=== PATIENT | male | born 1940 | race Caucasian/White ===

== ENCOUNTER → 2017-03-30 22:50 | Emergency (ER) | payer MEDICARE ==
[~2017-03-30 22:50] MED LIST: DOXYcycline CAP(*) 100 MG PO ONE
[2017-03-30 22:56] VITALS: BP 174/74
--- NOTE | 2017-03-30 23:13 | ED ---
Bite Injury/Animal - HPI Summary HPI Summary: 76M presents with tick on left thigh today. He tried to remove it with tweezers and tick twister. He does not know how long it has been there. tick removed 2 hours ago. no allergy to doxcycline. no history of lyme. no fever or rash. 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 TONSILECTOMY, 1961 Hx Anesthesia Reactions: No Infectious Disease History: No Infectious Disease History: Denies: Traveled Outside the [place] in Last 30 Days - Family History Known Family History: Positive: Cardiac Disease - Social History Alcohol Use: None Substance Use Type: Reports: None Amount Used/How Often: PACK A DAY Have You Smoked in the Last Year: No Review of Systems Negative: Fever Negative: Chest Pain Negative: Shortness Of Breath Positive: Other - tick bite left thigh All Other Systems Reviewed And Are Negative: Yes Physical Exam Triage Information Reviewed: Yes Vital Signs On Initial Exam: Initial Vitals Temp Pulse Resp BP Pulse Ox 97.2 F 70 16 174/74 98 03/30/17 22:52 03/30/17 22:52 03/30/17 22:52 03/30/17 22:52 03/30/17 22:52 Vital Signs Reviewed: Yes Appearance: Positive: Well-Appearing Skin: Positive: Warm, Dry, Other - tick bite on left thigh with 1cm surrounding red irritation Head/Face: Positive: Normal Head/Face Inspection Eyes: Positive: Normal, Conjunctiva Clear Respiratory/Lung Sounds: Positive: Clear to Auscultation, Breath Sounds Present Cardiovascular: Positive: Normal, RRR Musculoskeletal: Positive: Normal Neurological: Positive: Normal Psychiatric: Positive: Normal Diagnostics - Vital Signs Vital Signs Temp Pulse Resp BP Pulse Ox 03/30/17 22:52 97.2 F 70 16 174/74 98 - Laboratory Lab Statement: Any lab studies that have been ordered have been reviewed, and results considered in the medical decision making process. Bite Injury Course/Dx - Course Course Of Treatment: 76M presents with tick on left thigh today. He tried to remove it with tweezers and tick twister. He does not know how long it has been there. tick removed 2 hours ago. no allergy to doxcycline. no history of lyme. no fever or rash. tick head remained in left thigh, removed part of it but can not get all of it. will treat with ppx dose of doxycyline. patient understands and agrees with plan. - Diagnoses Differential Diagnosis/HQI/PQRI: Positive: Other - tick, lyme Provider Diagnosis: Tick bite Discharge - Discharge Plan Condition: Good Disposition: HOME Patient Education Materials: Tick Bite (ED) Referrals: Jayna Pathak MD [Primary Care Provider] - Additional Instructions: You have been prophylactically treated for Lyme disease Return to ED if develop any rash or signs of infection
== END | disposition home or self-care (01) ==
LOC: ED 22:50
DX: S70.362A Insect bite (nonvenomous), left thigh, initial encounter (principal); W57.XXXA Bitten or stung by nonvenomous insect and other nonvenomous arthropods, initial encounter; Y93.9 Activity, unspecified; Y92.9 Unspecified place or not applicable
CPT/HCPCS: 99282; A9270-GY

== ENCOUNTER 2023-08-27 09:38 | Observation (INO) ==
[2023-08-27 10:17] LABS: ABS Eosinophils 0.2 10^3/uL (0.0-0.5); ABS Lymphocytes 0.6 10^3/uL (1.0-4.8); ABS Monocytes 0.4 10^3/uL (0.0-1.1); ABS Neutrophils 4.7 10^3/uL (1.5-7.6); Eosinophil % 3.3 %; Hematocrit 41.4 % (38-53); Hemoglobin 13.6 g/dL (13.2-16.3); Lymphocyte % 9.8 %; Mean Corpuscular Hgb Conc 32.8 g/dL (31-36); Mean Corpuscular Volume 91.4 fL (80-97); Mean Platelet Volume 8.8 fL (7.5-11.2); Nucleated Red Blood Cells % 0.1 %/100WBC (0.0-0.8); Platelet Count 146 10^3/uL (150-450); Red Blood Count 4.53 10^6/uL (4.06-5.63); Red Cell Distribution Width 15.9 % (12-17); White Blood Count 5.8 10^3/uL (3.6-10.2)
[2023-08-27 10:24] LABS: INR 1.24 (0.83-1.13)
[2023-08-27 10:35] LABS: High Sens Troponin Baseline 8 pg/mL (<20)
[2023-08-27] MEDS: Lactated Ringers 1000 ml BAG 1,000 ML IV ONE (10:41)
[2023-08-27 11:14] LABS: ALT 18 U/L (7-52); Albumin 3.6 g/dL (3.2-5.2); Albumin/Globulin Ratio 1.3 (1-3); Alkaline Phosphatase 107 U/L (35-149); Anion Gap 8 mmol/L (2-16); Blood Urea Nitrogen 20 mg/dL (6-24); CO2 Carbon Dioxide 22 mmol/L (22-32); Calcium 8.5 mg/dL (8.6-10.3); Chloride 109 mmol/L (101-111); Creatinine, Serum 1.41 mg/dL (0.67-1.17); Globulin 2.8 g/dL (2-4); Glucose 181 mg/dL (70-100); Sodium 139 mmol/L (135-145); Total Bilirubin 0.6 mg/dL (0.2-1.0); Total Protein 6.4 g/dL (6.4-8.9); eGFR CKD-EPI 49.8 (>60)
[2023-08-27 12:04] LABS: Urine Appearance Clear; Urine Bilirubin Negative (Negative); Urine Blood Negative (Negative); Urine Color Colorless; Urine Glucose Negative (Negative); Urine Ketones Negative (Negative); Urine Nitrite Negative (Negative); Urine Protein Negative (Negative); Urine Urobilinogen Negative (Negative); Urine pH 5.5 (5.0-8.0)
[2023-08-27 12:14] LABS: Urine Bacteria Absent /HPF (Absent); Urine Red Blood Cell 1+(3-5/hpf) /HPF (0-Trace); Urine White Blood Cell Trace(0-5/hpf) /HPF (0-Trace)
[2023-08-27 12:32] LABS: C Reactive Protein 1.05 mg/L (<8.01)
[2023-08-27] MEDS: Lactated Ringers 1000 ml BAG 1,000 ML IV SCH ×2 (15:00→15:11)
[2023-08-27] MEDS: cefTRIAXone 1 gm/50 mL D5W 1 GM/50 ML BAG IV ONE (18:34)
[2023-08-28 06:15] LABS: ABS Eosinophils 0.3 10^3/uL (0.0-0.5); ABS Monocytes 0.7 10^3/uL (0.0-1.1); ABS Neutrophils 4.3 10^3/uL (1.5-7.6); ABS Nucleated RBC 0.01 10^3/ul; Eosinophil % 4.8 %; Hematocrit 35.9 % (38-53); Lymphocyte % 15.1 %; Mean Corpuscular Hgb Conc 33.4 g/dL (31-36); Mean Corpuscular Volume 89.8 fL (80-97); Mean Platelet Volume 8.9 fL (7.5-11.2); Nucleated Red Blood Cells % 0.2 %/100WBC (0.0-0.8); Platelet Count 169 10^3/uL (150-450); Red Cell Distribution Width 15.9 % (12-17); White Blood Count 6.3 10^3/uL (3.6-10.2)
[2023-08-28 06:32] LABS: Albumin 3.1 g/dL (3.2-5.2); Albumin/Globulin Ratio 1.4 (1-3); Calcium 8.1 mg/dL (8.6-10.3); Creatinine, Serum 1.44 mg/dL (0.67-1.17); Globulin 2.2 g/dL (2-4); Potassium 3.9 mmol/L (3.5-5.0); Total Bilirubin 0.3 mg/dL (0.2-1.0); Total Protein 5.3 g/dL (6.4-8.9); eGFR CKD-EPI 48.5 (>60)
[2023-08-28 07:44] LABS: Magnesium 1.9 mg/dL (1.9-2.7)
[2023-08-28] MEDS: Aspirin EC 81 mg TAB.EC (enteric coated) PO SCH (08:35)
[2023-08-28] MEDS: Potassium Chlor 20 meq TAB.ER PO ONE (08:35)
[2023-08-28] MEDS ORDERED: Sulfur Hexaflouride MICROSPHR 25 MG VIAL ONE (10:55)
[2023-08-28] MEDS ORDERED: Lidocaine 1% MPF 5 ML VIAL ONE (14:33)
[2023-08-28 16:28] VITALS: BP 147/76
[2023-08-28] MEDS ORDERED: cefTRIAXone 1 gm/50 mL D5W 1 GM/50 ML BAG IV SCH (16:30)
== END 2023-08-28 17:44 | disposition home or self-care (01) ==
LOC: ED 09:38 → EDHOLD 09:38 → SUATTDRO 14:01 → MEDTELE 15:50
PROVIDERS: ADMIT Hospitalist; ATTEND Internal Medicine

== ENCOUNTER 2024-05-18 08:30 | Observation (INO) ==
[~2024-05-18 08:30] MED LIST changes: -DOXYcycline CAP(*) 100 MG PO ONE; +Dexamethasone IV 4 MG/ML VIAL 1 ml VIAL ONE; +Lidocaine 2% PF 5 ML VIAL ONE; +Metoclopramide 5 MG/ML VIAL (10 mg) IV PRN; +Midazolam 2 mg/2 ml VIAL 1 mg/ml 2 ml VIAL (2 mg) ONE; +NS 0.45% 1000 ml BAG 1,000 ML IV SCH; +Naloxone 0.4 mg VIAL 0.4 mg/ml 1 ml VIAL IV PRN; +Ondansetron 4 mg VIAL 2 MG/ML 2 ml VIAL IV PRN; +Ondansetron 4 mg VIAL 2 MG/ML 2 ml VIAL ONE; +Propofol 10 mg/ml 100 ML BTL 0 MG/0 ML BTL ONE; +ROPIVACAINE 5 MG/ML 30 ML BTL (0.5%) ONE; +fentaNYL 100 mcg/2 ml 50 MCG/ML VIAL IV PRN; +fentaNYL 100 mcg/2 ml 50 MCG/ML VIAL ONE
[2024-05-18] MEDS ORDERED: ceFAZolin 2 GM PREMIX 2 GM/50 ML BAG ONE (08:49)
[2024-05-18] MEDS ORDERED: Tranexamic Acid 1 GM/100ML BAG 2,000 MG/200 ML BAG IV ONE (08:49)
[2024-05-18] MEDS: Lactated Ringers 1000 ml BAG 1,000 ML IV SCH ×2 (09:19→15:51)
[2024-05-18] MEDS: Acetaminophen IV 1 GM/100ML 1,000 MG/100 ML BAG IV ONE (09:21)
[2024-05-18] MEDS: Buffered Lidocaine 1% SYRIN 1 ml INTRADERM ONE (09:22)
[2024-05-18] MEDS: Scopolamine 1 mg/72hr PATCH TRANSDERM ONE (09:23)
[2024-05-18 09:24] LABS: Rapid COVID-19 Molecular Undetected (Undetected)
[2024-05-18] MEDS ORDERED: ROPIVACAINE 5 MG/ML 30 ML BTL (0.5%) ONE (11:07)
[2024-05-18] MEDS ORDERED: Lidocaine 2% PF 5 ML VIAL ONE (11:19)
[2024-05-18] MEDS ORDERED: Phenylephrine IV 10 MG/ML 1 ml VIAL ONE (11:22)
[2024-05-18] MEDS ORDERED: Lactulose 30 ml UDC PO PRN (12:15)
[2024-05-18] MEDS ORDERED: Ondansetron 4 mg VIAL 2 MG/ML 2 ml VIAL IV PRN (12:15)
[2024-05-18] MEDS ORDERED: Ondansetron ODT 4 mg TAB 4 MG TAB PO PRN (12:15)
[2024-05-18] MEDS ORDERED: Morphine 2 MG/ML SYRINGE IV PRN (12:15)
[2024-05-18] MEDS ORDERED: Magnesium Hydroxide LIQ 30 ML UDC PO PRN (12:15)
[2024-05-18] MEDS: Magnesium Hydroxide LIQ 30 ML UDC PO SCH (21:30)
[2024-05-18] MEDS: ceFAZolin 2 GM PREMIX 2 GM/50 ML BAG IV SCH (21:33)
[2024-05-18 23:43] LABS: Urine Appearance Clear; Urine Bacteria Absent /HPF (Absent); Urine Bilirubin Negative (Negative); Urine Blood Negative (Negative); Urine Color Light-Yellow; Urine Glucose 4+ (>=1000 mg/dL) (Negative); Urine Ketones Trace (Negative); Urine Nitrite 1+ (Negative); Urine Protein Trace (Negative); Urine Red Blood Cell Trace(0-2/hpf) /HPF (0-Trace); Urine Urobilinogen Negative (Negative); Urine White Blood Cell 3+(>20/hpf) /HPF (0-Trace); Urine pH 6.5 (5.0-8.0)
[2024-05-19] MEDS: Calcium Carb (TUMS) 500 mg CHEW TAB PO PRN (00:59)
[2024-05-19 05:50] LABS: Hematocrit 38.7 % (38-53); Mean Platelet Volume 8.9 fL (7.5-11.2); Platelet Count 198 10^3/uL (150-450)
[2024-05-19 06:14] LABS: Calcium 8.7 mg/dL (8.6-10.3); Creatinine, Serum 1.26 mg/dL (0.67-1.17); Potassium 4.5 mmol/L (3.5-5.0); eGFR CKD-EPI 56.6 (>60)
[2024-05-19] MEDS: Vitamin THERAPEUTIC TAB PO SCH (07:42)
[2024-05-19] MEDS: Aspirin EC 81 mg TAB.EC (enteric coated) PO SCH (07:42)
[2024-05-19 09:54] VITALS: BP 141/80
== END 2024-05-19 13:41 | disposition home or self-care (01) ==
LOC: SSU 08:30 → OR 08:30
PROVIDERS: ADMIT Orthopaedic Surgery Adult Reconstructive Orthopaedic Surgery; ATTEND Orthopaedic Surgery Adult Reconstructive Orthopaedic Surgery